=== PATIENT | female | born 1995 | race Caucasian/White ===

== ENCOUNTER 2017-02-28 10:28 | Emergency (ER) | payer MEDICAID, OTHER ==
[~2017-02-28] VITALS: Ht 172.7 cm; Wt 53.0 kg
[2017-02-28 10:34] VITALS: Ht 172.7 cm; Wt 53.0 kg
[2017-02-28] MEDS ORDERED: ONDANSETRON (ODT) 4 MG TAB ODT STA (11:23)
[2017-02-28 11:33] LABS: URINE BLOOD (Dip) POC Trace-lysed (NEGATIVE)
[2017-02-28] MEDS ORDERED: ONDA4TAB14 PO (11:52)
[2017-02-28] MEDS ORDERED: LOPE2CAP PO (11:52)
--- NOTE | 2017-02-28 16:07 | ERA ---
ER Documentation Chief Complaint Date/Time DATE: 02/28/17 TIME: 16:00 Chief Complaint n/v diarrhea x this am HPI This is a 21-year-old female with a chief complaint of nausea vomiting. Patient states that she had some bad food last night and one of her friends who she ate with has similar symptoms. Patient is currently on her menstrual period but denies any pelvic pain. Patient denies constipation, abdominal pain , decreased appetite, migrating pain or p.o. intolerance. Patient denies recent travel. Vaccination status is up-to-date. Nursing notes have been reviewed and are mostly consistent with the history given by the patient. ROS All systems reviewed and are negative except as per history of present illness. Medications Home Meds Active Scripts Loperamide Hcl* (Imodium*) 2 Mg Capsule, 2 MG PO .AFTER EA LOOSE BM Y for DIARRHEA, #10 TAB Prov:TIANA COVINGTON PA-C 02/28/17 Ondansetron (Ondansetron Odt) 4 Mg Tab.rapdis, 4 MG PO Q6H Y for NAUSEA AND/OR VOMITING, #10 TAB Prov:TIANA COVINGTON PA-C 02/28/17 Allergies Allergies: Coded Allergies: No Known Allergy (Unverified , 02/28/17) PMhx/Soc Hx Alcohol Use: No Hx Substance Use: No Hx Tobacco Use: No Physical Exam Vitals Vital Signs Date Time Temp Pulse Resp B/P Pulse Ox O2 Delivery O2 Flow Rate FiO2 02/28/17 10:34 97.6 99 16 114/78 99 Physical Exam Const: Well-appearing well-developed 21-year-old female no acute distress Head: Atraumatic Eyes: Normal Conjunctiva ENT: Normal External Ears, Nose and Mouth. Neck: Full range of motion..~ No meningismus. Resp: Clear to auscultation bilaterally Cardio: Regular rate and rhythm, no murmurs Abd: Soft, non tender, non distended. Normal bowel sounds. No suprapubic tenderness. Negative Rovsing sign. Skin: No petechiae or rashes Back: No midline or flank tenderness Ext: No cyanosis, or edema Neur: Awake and alert Psych: Normal Mood and Affect Results 24 hrs Laboratory Tests Test 02/28/17 11:38 Bedside Urine pH (LAB) 5.5 Bedside Urine Protein (LAB) Trace Bedside Urine Glucose (UA) Negative Bedside Urine Ketones (LAB) 2+ Bedside Urine Blood Trace-lysed Bedside Urine Nitrite (LAB) Negative Bedside Urine Leukocyte Esterase (L Trace Current Medications Medications (Trade) Dose Ordered Sig/Aneudy Route PRN Reason Start Time Stop Time Status Last Admin Dose Admin Ondansetron HCl (Zofran Odt) 4 mg ONCE STAT ODT 02/28/17 11:23 02/28/17 11:24 DC 02/28/17 11:34 Procedures/MDM 21-year-old female presenting one day after nausea and vomiting. Sick contacts. History of eating possible bad food. One sick contacts. test negative urinalysis unremarkable consistent with current menstruation. History, signs and symptoms are most consistent with gastroenteritis due to food poisoning. At this time of little suspicion for ovarian torsion, appendicitis, bowel obstruction, mesenteric ischemia, ectopic , ovarian cyst, perforated viscus, cholelithiasis/cholangitis or other acute abdominal pathology. Patient will be discharged with symptomatic treatment. Discharge medications: Loperamide, Zofran. I have spoke with the patient regarding their condition and future management. They have verbally responded that they understand their status and treatment plan. The patients vitals are stable, and their current condition is appropriate for discharge. The patient will be given discharge instructions with return precautions. Departure Diagnosis: Primary Impression: Gastroenteritis due to food toxin Additional Impression: Gastroenteritis Condition: Stable Patient Instructions: Food Poisoning (6Yr-Adult) Additional Instructions: Follow up with your PCP within the next 1-3 days for a more thorough evaluation and a possible referral to a specialist. Return the the emergency department immediately if symptoms worsen or change. If you have any questions regarding medications, ask your pharmacist or us before you leave. If any adverse reactions occur while taking your medications, discontinue the treatment and return to the emergency department immediately. Take your medications as directed, and complete the entire course of treatment. TIANA COVINGTON PA-C Feb 28, 2017 16:06
[2017-03-06 16:13] LABS: URINE BLOOD (Dip) POC Trace-lysed (NEGATIVE)
== END 2017-02-28 12:03 | disposition home or self-care (01) ==
LOC: FTE 10:28
DX: K52.29 Other allergic and dietetic gastroenteritis and colitis (principal); Z91.018 Allergy to other foods
CPT/HCPCS: 81003; Z7502; Z7610; 99283